=== PATIENT | male | born 1930 | race Caucasian/White ===

== ENCOUNTER 2019-12-16 12:01 | Emergency (ER) | payer OTHER | END 2019-12-16 15:50 | disposition home or self-care (01) | LOC: EDH 12:01 | DX: R00.0 Tachycardia, unspecified (principal); I10 Essential (primary) hypertension; I48.91 Unspecified atrial fibrillation; K21.9 Gastro-esophageal reflux disease without esophagitis; I50.9 Heart failure, unspecified; F20.9 Schizophrenia, unspecified; Z87.891 Personal history of nicotine dependence; F43.10 Post-traumatic stress disorder, unspecified ==